=== PATIENT | female | born 1990 | race African-American/Black ===

== ENCOUNTER 2017-05-25 13:32 | Emergency (ER) | payer OTHER ==
[2017-05-25 15:15] LABS: Urine Appearance Clear; Urine Blood Negative (Negative); Urine Color Straw; Urine Ketones Negative (Negative); Urine Protein Negative (Negative); Urine Specific Gravity 1.008 (1.010-1.030); Urine Urobilinogen Negative (Negative)
[2017-05-25 16:10] LABS: ABS Basophils 0 10^3/ul (0-0.2); ABS Eosinophils 0.5 10^3/ul (0-0.6); ABS Lymphocytes 2.1 10^3/ul (1.0-4.8); ABS Monocytes 0.5 10^3/ul (0-0.8); ABS Nucleated RBC 0 10^3/ul; Eosinophil % 9.3 % (0-6); Hematocrit 34 % (35-47); Hemoglobin 11.4 g/dl (12.0-16.0); Lymphocyte % 41.1 % (25-47); Mean Corpuscular HGB Conc 34 g/dl (31-36); Mean Corpuscular Hemoglobin 26 pg (27-31); Mean Corpuscular Volume 78 fL (80-97); Mean Platelet Volume 8 um3 (7.4-10.4); Nucleated Red Blood Cells % 0.1; Platelet Count 245 10^3/ul (150-450); Red Blood Count 4.37 10^6/ul (4.0-5.4); Red Cell Distribution Width 14 % (10.5-15); White Blood Count 5.1 10^3/ul (3.5-10.8)
[2017-05-25 17:15] LABS: EGFR Non-African American 100.6 (>60)
--- NOTE | 2017-05-25 22:11 | ED ---
Nara Jeter Thomas, scribed for Carlos Alberto Perez on 05/25/17 at 1504 . Complex/Multi-Sys Presentation - HPI Summary HPI Summary: The patient is a 27 year old female with schizophrenia who was brought into the emergency department by the police today. The patient reports she had some abdominal discomfort last night but denies any pain today. She additionally complains of urinary incontinence, diarrhea, and a slight cough. The patient has a history of a heart murmur and asthma. She denies drug use, alcohol use, and smoking. - History Of Current Complaint Chief Complaint: EDMentalHealth Time Seen by Provider: 05/25/17 14:18 Hx Obtained From: Patient Onset/Duration: Lasting Days - 1, Still Present Timing: Constant Severity Currently: Moderate Aggravating Factor(s): Unknown Associated Signs And Symptoms: Positive: Other - Abd discomfort, urinary incontinence, diarrhea, cough PMH/Surg Hx/FS Hx/Imm Hx Previously Healthy: Yes Respiratory History: Reports: Hx Asthma Psychiatric History: Reports: Hx Schizophrenia Infectious Disease History: No Infectious Disease History: Denies: Traveled Outside the [place] in Last 30 Days - Family History Known Family History: Positive: Other - Patient denies relevant FHx - Social History Alcohol Use: None Hx Substance Use: No Substance Use Type: Reports: None Hx Tobacco Use: No Smoking Status (MU): Never Smoked Tobacco Review of Systems Negative: Fever Positive: Cough Positive: Diarrhea, Other Positive: incontinence All Other Systems Reviewed And Are Negative: Yes Physical Exam - Summary Physical Exam Summary: Appearance: Well appearing, no pain distress Skin: warm, dry, reflects adequate perfusion Head/face: normal Eyes: EOMI, GR[place] ENT: normal Neck: supple, non-tender Respiratory: CTA, breath sounds present Cardiovascular: RRR, pulses symmetrical Abdomen: non-tender, soft Bowel: present Musculoskeletal: normal, strength/ROM intact Neuro: normal, sensory motor intact, A&Ox3. Psych: The patient is anxious and has depressed affect. Triage Information Reviewed: Yes Vital Signs On Initial Exam: Initial Vitals Temp Pulse Resp BP Pulse Ox 98.2 F 90 19 118/73 99 05/25/17 13:32 05/25/17 13:32 05/25/17 13:32 05/25/17 13:32 05/25/17 13:32 Vital Signs Reviewed: Yes Diagnostics - Vital Signs Vital Signs Temp Pulse Resp BP Pulse Ox 01/19/18 13:32 98.2 F 90 19 118/73 99 - Laboratory Result Diagrams: 05/25/17 15:55 05/25/17 15:25 Lab Statement: Any lab studies that have been ordered have been reviewed, and results considered in the medical decision making process. Complex Multi-Symp Course/Dx Assessment/Plan: The patient is a 27 year old female with schizophrenia who was brought into the emergency department by the police today. The patient reports she had some abdominal discomfort last night but denies any pain today. Bloodwork and urinalysis were obtained. The patient was medically cleared and is awaiting mental health evaluation. The patient will be signed out to Dr. Robles pending mental health evaluation. - Diagnoses Provider Diagnoses: Depression Discharge - Discharge Plan Condition: Stable Disposition: OTHER Discharge Disposition Comment: Signed out to Dr. Robles pending mental health evaluatoin. Forms: *Work Release Referrals: No Primary Care Phys,NOPCP [Primary Care Provider] - The documentation as recorded by the Nara dickinson Thomas accurately reflects the service I personally performed and the decisions made by , Carlos Alberto Perez.
--- NOTE | 2017-05-26 05:49 | ED ---
Zion Jeter Stephanie, scribed for Radha Robles MD on 05/26/17 at 0544 . Progress - Progress Note Progress Note: Pt was evaluated by mental health [facility] former and will be discharged home. She is advised to follow up with [facility]. - Consult/PCP Time Called: 13:30 Course/Dx - Course Course Of Treatment: Pt was evaluated by mental health [facility] former and will be discharged home. She is advised to follow up with [facility]. - Diagnoses Provider Diagnoses: Depression Is Visit Related: No The documentation as recorded by the Zion dickinson Stephanie accurately reflects the service I personally performed and the decisions made by , Radha Robles MD.
[2017-05-26 06:16] VITALS: BP 159/94
== END 2017-05-26 06:16 ==
LOC: ED 13:32
DX: F32.9 Major depressive disorder, single episode, unspecified (principal); R05 Cough; R19.7 Diarrhea, unspecified
CPT/HCPCS: 36415; 80053; 80307; 80320; 80329; 81003; 83690; 84443; 84702; 85025; 99285; G0480